=== PATIENT | male | born 1970 | race Caucasian/White ===

== ENCOUNTER 2020-07-16 07:32 | Emergency (ER) | payer MEDICAID, SELFPAY ==
[2020-07-16 07:40] VITALS: BP 110/74; PULSE 125; RESP 18; TEMP 36.8; O2SAT 97
--- NOTE | 2020-07-16 08:05 | ED.GENADUL_ITS ---
Discharge Plan Disposition Patient Disposition: HOME Condition: Stable Discharge Details Chief Complaint: Sorethroat Clinical Impression: Strep pharyngitis Primary Care Provider: Abelardo Flores ED Provider: Santiago Moon Home Meds and New Rx's Prescriptions: New amoxicillin 875 mg tablet 875 mg PO BID 10 Days Qty: 20 RF: 0 Continued paroxetine HCl 30 mg tablet 30 mg PO DAILY Qty: 90 RF: 3 amitriptyline 25 mg tablet 75 mg PO HS Qty: 270 RF: 4 Discharge Instructions Instructions: Strep Throat (ED) Additional Instructions: Amoxicillin as directed. [id number] Tylenol and/or Motrin as directed for discomfort and/or fever. Plenty of fluids to avoid dehydration. Please watch for new or worsening symptoms and return to the ER for any concerns. I do recommend reaching out to your primary care provider on Friday for prompt outpatient reevaluation. Medical Decision Making 49-year-old gentleman with a history of headaches presents concerned that he may have strep throat. Reports sore throat for the past 4 days, chills, subjective fevers. Has not taken any venm-qjx-[id number] medications. Pulse during triage is 125 but during my evaluation was 104. He appears well, nontoxic. Blood pressure 110/74. He is afebrile. Clinically he has pharyngeal erythema, tender cervical adenopathy. Prior to my evaluation, rapid strep was already obtained and resulted as positive. His airway is patent, no signs of peritonsillar a bscess or uvular deviation. Will provide a single dose of amoxicillin and Motrin now and provide prescription for antibiotics. Discussed the importance of treating his symptoms with [id number]-[id number] medications and plenty of fluids to avoid dehydration. He has no additional questions or concerns and is comfortable discharge. Medical Records Medical records reviewed: Yes I reviewed the patient's medical records. Lab Data Lab results reviewed: Yes I reviewed the patient's lab results. HPI General Mode of arrival: ambulatory . Date/Time Provider Initiated Documentation: 07/16/20 08:05 . Limitations to Documentation: no limitations . Information obtained by: patient . HPI Narrative: 49-year-old gentleman with a history of chronic headaches, presents to the ER today reporting 4-day history of sore throat, chills last night, subjective fever. Denies ear pain, nasal congestion, neck pain, chest pain, shortness of breath abdominal pain, nausea, vomiting, skin rash. He reports that his brother had similar symptoms but is getting better on his own. He denies recent travel. He specifically is concerned of strep throat. Related Data Home Medications Medication Instructions Recorded Confirmed amitriptyline 25 mg tablet 75 mg PO HS #270 tab 02/01/20 07/16/20 paroxetine HCl 30 mg tablet 30 mg PO DAILY #90 tab-cap 02/01/20 07/16/20 amoxicillin 875 mg PO BID 10 Days #20 tab 07/16/20 Previous Rx's Medication Instructions Recorded amitriptyline 25 mg tablet 75 mg PO HS #270 tab 02/01/20 paroxetine HCl 30 mg tablet 30 mg PO DAILY #90 tab-cap 02/01/20 amoxicillin 875 mg PO BID 10 Days #20 tab 07/16/20 Allergies Allergy/AdvReac Type Severity Reaction Status Date / Time chlorpromazine AdvReac Unknown RESTLESSNES Unverified 07/16/20 07:45 S General Stated Complaint: Sorethroat MIREYA: 3 Review of Systems Constitutional Constitutional: Denies fever(s) ENT Ears, Nose, Mouth, and Throat: Reports sore throat Cardiovascular Cardiovascular: Denies chest pain and Denies dyspnea Respiratory Respiratory: Denies cough and Denies dyspnea Gastrointestinal Gastrointestinal: Denies abdominal pain, Denies nausea and Denies vomiting Musculoskeletal Musculoskeletal: Denies back pain Integumentary/Breasts Skin/Breast: Denies rash [facility] Social History Smoking/Tobacco Use Status: Never Alcohol Intake: never Drug use: Never Substance use type: does not use Do you feel safe at home: Yes Do you feel safe in your relationship?: Yes Exam Const General: cooperative, healthy appearing, comfortable and no acute distress Orientation: alert and awake [facility] Head: normal to inspection, normocephalic and atraumatic Ears: external ears normal, TM's normal bilaterally and EAC's normal Mouth: moist mucous membranes Throat: tonsils normal, uvula midline, no peritonsillar masses, posterior oropharynx abnormal erythema; no exudates and uvula not displaced Eyes Conjunctivae: conjunctivae normal Sclera: sclerae normal Neck Neck: normal visual inspection, full ROM, no meningeal signs, trachea midline, supple, lymphadenopathy bilateral anterior cervical and tender (Lymphadenopathy) Resp Effort & Inspection: normal respiratory effort and able to speak in complete sentences Auscultation: clear to auscultation bilaterally Cardio Rate: tachycardic (104) Rhythm: regular rhythm GI Palpation: soft and nontender Skin General skin exam: no rashes or lesions noted Neuro General: patient alert, patient awake, moves all extremities and no focal motor deficits Speech: speech normal Sensory Exam: no sensory deficits noted Psych Appearance: grossly normal Mental Status: mental status grossly normal Course Vital Signs Vital signs: Vital Signs Temperature 36.8 C 07/16/20 07:40 Pulse 125 H 07/16/20 07:40 Respiratory Rate 18 07/16/20 07:40 Blood Pressure 110/74 07/16/20 07:40 Pulse Oximetry 97 07/16/20 07:40 Temperature 36.8 C 07/16/20 07:40 Temperature Source Temporal Artery Scan 07/16/20 07:40 Pulse 125 H 07/16/20 07:40 Respiratory Rate 18 07/16/20 07:40 Respiratory Effort Non-Labored 07/16/20 07:44 Blood Pressure 110/74 07/16/20 07:40 Blood Pressure Position Sitting 07/16/20 07:40 Pulse Oximetry 97 07/16/20 07:40 Oxygen Delivery Method Room Air 07/16/20 07:40 Oxygen Flow Rate 0 07/16/20 07:40 Pain Level 8 07/16/20 07:40 Lab/Test Results Lab/Test Results: POC Strep Test-JORGE(Rapid) Start: 07/16/20 07 :52 Freq: .Rapid Strep Test Status: Active Protocol: Document 07/16/20 07:55 SGL (Rec: 07/16/20 07:55 [facility] [place] [id number]) Strep test-JORGE(Rapid)-POC POC-Strep test-JORGE (Rapid) Positive POC-Strep test-JORGE (Rapid) Positive
[2020-07-16] MEDS: Amoxicillin 875 MG TAB PO (08:23)
[2020-07-16] MEDS: Ibuprofen 800 MG TAB PO (08:23)
[2020-07-16 08:24] VITALS: BP 110/70; PULSE 109; RESP 16; TEMP 36.9; O2SAT 96
[2020-07-16 08:30] VITALS: BP 110/70; PULSE 109; RESP 16; TEMP 36.9; O2SAT 96
== END 2020-07-16 08:39 | disposition home or self-care (01) ==
PROVIDERS: Emergency Provider Physician Assistant; PCP Family Medicine
DX: J02.0 Streptococcal pharyngitis (principal)
CPT/HCPCS: 87880; 99283

== ENCOUNTER 2021-01-05 01:06 | Outpatient (CLI) | payer MEDICAID, SELFPAY ==
[2021-01-05 12:41] LABS: Calculated LDL 71 mg/dL (<100); Cholesterol 130 mg/dL (<200); HDL Cholesterol 42 mg/dL (40-60); Triglyceride 89 mg/dL (<150)
[2021-01-05 13:19] LABS: Hemoglobin A1C 5.1 % (<5.7)
[2021-01-05 17:32] LABS: PSA, Screening 1.3 ng/mL (0.0-3.5)
== END 2021-01-05 01:07 | disposition home or self-care (01) ==
LOC: LOS 01:06
PROVIDERS: PCP Nurse Practitioner Family; Visit Provider Nurse Practitioner Family
DX: Z13.220 Encounter for screening for lipoid disorders (principal); Z13.1 Encounter for screening for diabetes mellitus; Z12.5 Encounter for screening for malignant neoplasm of prostate
CPT/HCPCS: 36415; 80061; 84153; 83036